=== PATIENT | female | born 1995 | race Caucasian/White ===

== ENCOUNTER 2019-12-18 19:55 | Day surgery (SDC) | payer OTHER ==
[2019-12-18 20:32] VITALS: BP 114/74; BMI 24.0
--- NOTE | 2019-12-18 20:42 | PDOC.LDHP ---
Labor and Delivery H&P Chief complaint: contractions HPI: 24 y/o at 38w3d, patient of Dr. Aragon, presents with ctx q 10 mins for the last few hours and off and on since yesterday. Reportedly 2-3 cm in clinic on . Denies VB, LOF, or decreased FM. ROS neg for HEENT, cv, pulm, gi, gu, neuro, psych, skin, musculoskeletal or constitutional symptoms other than mentioned above. OB History Details: at term Past Medical History: None Current medications: pre-eliza vitamins Previous surgical history: none Allergies/Adverse Reactions: Allergies Allergy/AdvReac Type Severity Reaction Status Date / Time No Known Allergies Allergy Verified 11/13/19 07:12 Social history: none - Physical Exam Vital signs reviewed and normal: yes General: NAD, resting Lungs: nonlabored breathing Abdomen: gravid Extremeties: no edema FHT: category 1 (120s, mod variability, + accels, no decels) [place] contractions every: intermittent - Vaginal Exam cm dilated: 2 Effacement: 50% Station: -2 - OB Labs Blood type: O RH: positive Antibody Screen: negative HIV: negative RPR: negative HEPSAg: negative 1 hour GCT: negative GBS: negative Rubella: immune - Assessment 24 y/o at 38w3d with no e/o active labor. status reassuring with reactive NST. - Plan -: D/c home with precautions. Advised to keep all appointments.
[2019-12-18 20:57] VITALS: TEMP 97.9
== END 2019-12-18 22:25 | disposition home or self-care (01) ==
LOC: L&D/OP 19:55
PROVIDERS: ATTEND Obstetrics & Gynecology
DX: O47.1 False labor at or after 37 completed weeks of gestation (principal); Z3A.38 38 weeks gestation of pregnancy

== ENCOUNTER 2019-12-23 06:11 | Inpatient (IN) | payer OTHER ==
[2019-12-23 07:00] VITALS: BMI 25.6
[2019-12-23] MEDS ORDERED: Ibuprofen 800 MG TAB PO PRN (07:04)
[2019-12-23] MEDS ORDERED: Misoprostol 200 MCG TAB PR PRN (07:04)
[2019-12-23] MEDS ORDERED: Methylergonovine 0.2 MG/ML VIAL IM PRN (07:04)
[2019-12-23] MEDS ORDERED: Carboprost 250 MCG/ML AMP IM PRN (07:04)
[2019-12-23] MEDS ORDERED: Diphenoxylate HCl/Atropine Tablet PO PRN ×2 (07:04)
[2019-12-23] MEDS ORDERED: HYDROcodone/Acetaminophen 5/325 mg Tablet PO PRN ×2 (07:04)
[2019-12-23] MEDS ORDERED: hydrALAZINE 20 MG/ML VIAL SLOW IVP PRN ×2 (07:04→15:20)
[2019-12-23] MEDS ORDERED: Promethazine HCl 25 MG/ML VIAL IM PRN ×2 (07:04→08:30)
[2019-12-23] MEDS ORDERED: Butorphanol Tartrate 1 MG/ML VIAL SLOW IVP PRN (07:04)
[2019-12-23] MEDS ORDERED: Ondansetron PF 4 MG/2 ML Vial IVP PRN ×2 (07:04→08:30)
[2019-12-23] MEDS ORDERED: Lidocaine 1% (PF) 30 ML VIAL SC PRN (07:04)
[2019-12-23] MEDS ORDERED: NS / Oxytocin 40 units/1000ml 1,000 ML IV PRN (07:04)
[2019-12-23] MEDS ORDERED: Acetaminophen 500 MG TAB PO PRN (07:04)
--- NOTE | 2019-12-23 07:11 | PDOC.LDHP ---
Labor and Delivery H&P Chief complaint: contractions HPI: 24 y/o at 39w1d, patient of Dr. Aragon, presents with ctx q 3-5 mins with bloody mucus. Was seen several days ago and 2cm. Denies LOF or decreased FM. ROS neg for HEENT, CV, pulm, GI, , neuro, psych, skin, musculoskeletal, or constitutional symptoms other than mentioned above. OB History Details: 1 prior term Current complications: none Past Medical History: None Current medications: pre-eliza vitamins Previous surgical history: none Allergies/Adverse Reactions: Allergies Allergy/AdvReac Type Severity Reaction Status Date / Time No Known Allergies Allergy Verified 12/23/19 06:57 Social history: none - Physical Exam Vital signs reviewed and normal: yes General: NAD Lungs: nonlabored breathing Abdomen: gravid Extremeties: no edema FHT: category 1 (110, mod variability, + accels, no decels) [place] contractions every: 3-5 mins - Vaginal Exam cm dilated: 4 Effacement: 90% Station: -2 - OB Labs Blood type: O RH: positive Antibody Screen: negative HIV: negative RPR: negative HEPSAg: negative 1 hour GCT: negative GBS: negative Rubella: immune - Assessment L&D Assessment: term patient in labor - Plan Plan: admit to L&D, labor augmentation if indicated, informed consent obtained, anesthesia consult for pain management -: Dr. Aragon out, will be managed by [facility].
[2019-12-23] MEDS ORDERED: FLU VACC QS2020-21(6MOS UP)/PF 60 MCG/0.5 ML SYRINGE IM ONE (07:15)
[2019-12-23] MEDS: Lactated Ringer's 1,000 ML IV SCH ×4 (07:30→21:41)
[2019-12-23] MEDS ORDERED: Fentanyl 4 mcg/Bup 0.1% Cadd 100 ML ONE (07:45)
[2019-12-23 07:47] LABS: Hemoglobin 12.9 g/dL (12.0-16.0); Mean Corpuscular HGB CONC 34.6 g/dL (32.0-36.0); Mean Corpuscular Hemoglobin 31.7 pg (27.0-31.0); Mean Corpuscular Volume 91.6 fL (78.0-98.0); Mean Platelet Volume 7.6 fL (7.4-10.4); Platelet Count 237 thou/uL (130-400); RBC Distribution Width 12.6 % (11.5-14.5); Red Blood Cell (RBC) Count 4.09 mill/uL (4.20-5.40); White Blood Cell (WBC) Count 14.1 thou/uL (4.8-10.8)
[2019-12-23 08:26] LABS: HBSAg Index 0.25 S/CO (0-0.99); Hep B Surf Ag Non-Reactive S/CO (NonReactive); Syphilis Antibody Nonreactive (Nonreactive); Syphilis Antibody Index 0.03 S/CO (<1.00 Non-Reactive)
[2019-12-23] MEDS ORDERED: Communication Order-Pharmacy FS SCH (08:30)
[2019-12-23] MEDS ORDERED: diphenhydrAMINE 50 MG/ML VIAL IVP PRN (08:30)
[2019-12-23] MEDS ORDERED: Acetaminophen 325 MG TAB PO PRN (08:30)
[2019-12-23] MEDS ORDERED: EPHEDRINE 25 MG/5 ML SYRINGE SLOW IVP PRN (08:30)
[2019-12-23] MEDS ORDERED: Lactated Ringer's 500 ML IV PRN (08:30)
[2019-12-23] MEDS ORDERED: Fentanyl 4 mcg/Bupivacaine 0.1% Cassette 100 ML EPIDURAL SCH (08:30)
[2019-12-23] MEDS ORDERED: Naloxone HCl 0.4 mg/ml Vial IVP PRN ×2 (08:30)
--- NOTE | 2019-12-23 08:42 | PDOC.BPN ---
- Brief Progress Note Encounter Date: 12/23/19 Encounter Time: 08:30 OBGYN Faculty Patient seen by me and Dr Chisholm at bedside and care reviewed with her. POC discussed. Await CX progress. GBS negative. Last CX was 4cm. Last delivery was 6 years ago. Was still layent phase last check, await entry to active phase (6cm)
--- NOTE | 2019-12-23 09:33 | PDOC.BPN ---
- Brief Progress Note Encounter Date: 12/23/19 Encounter Time: 09:30 Anesthesia BP issues noted with poss high gutiérrez. Anesthesia aware. BPs have decreased and bow has ephedra given. CX now 6cm spontaneously.
--- NOTE | 2019-12-23 11:11 | PDOC.LDPN ---
Labor & Delivery Progress Note - Subjective Subjective: comfortable - Objective Vital signs reviewed and normal: yes Abnormal vital signs: SBPs 70s-80s prior to ephedrine given and fluid bolus, now 110s General: NAD, resting Uterine fundus: non tender SVE: 100/-1 FHT: category 1, variability present [place] contractions every: not seen on toco Plan: continue plan of care -: 24 y/o at 39.1wk presented with contractions #SIUP @ 39.1wk, active labor - SVE /-1 - Cat 1 tracing, ctx not seen on toco - GBS negative, O+ - episode of symptomatic hypotension with epidural anesthesia to above level of nipples, epidural turned off, given ephedrine and fluid bolus. Currently resting comfortably and BP improved to 110s. Still with high epidural, thus will continue to leave off and monitor closely - SROM @ 0908 - Continue to monitor in active phase of labor PCP: Mahesh
[2019-12-23] MEDS ORDERED: Bupivacaine HCl 0.5%/Epinephrine 1:200,000/PF 30 ml Vial ONE (12:08)
[2019-12-23] MEDS ORDERED: NS w/ Oxytocin 10 units 500 ML ONE (13:08)
[2019-12-23] MEDS ORDERED: NS w/ Oxytocin 10 units 500 ML IV SCH (13:15)
[2019-12-23] MEDS ORDERED: Calcium Carbonate 500 MG ChewTAB PO PRN (14:18)
--- NOTE | 2019-12-23 15:08 | PDOC.OPDEL ---
OB Operative/Delivery Note Delivery Dr/Surgeon: Phan Assist: Mynor as Faculty (asia Cervantes student present) Pre-Delivery Diagnosis: active labor Procedure/Post Delivery Dx: spontaneous vaginal delivery Weeks gestation: 39 (1day) Anesthesia: epidural - Findings A Sex: female - 1 min: 8 - 5 min: 9 - Additional Findings/Plan Placenta delivered: spontaneous (AT 1509, YOUNG.) Estimated blood loss: 100 Compilations/Other Findings: NC X 1 reduced Baby vigorous Baby delivery at 1504 No [place] baby with some slight nasal flaring...blowby in room. Dr key called for eval. I was present and supervised Dr Chisholm during the whole process. Baby with spont cry and movement Post delivery plan: routine recovery
[2019-12-23] MEDS ORDERED: Acetaminophen/Codeine 30-300mg Tablet PO PRN (15:20)
[2019-12-23] MEDS ORDERED: Bisacodyl 10 MG SUPP PR PRN (15:20)
[2019-12-23] MEDS ORDERED: Benzocaine-Menthol 82.5 ML CAN TOP PRN (15:20)
[2019-12-23] MEDS ORDERED: Milk Of Magnesia 30 ML UDCUP PO PRN (15:20)
[2019-12-23] MEDS ORDERED: Lanolin Ointment 7 GM TUBE TOP PRN (15:20)
[2019-12-23] MEDS ORDERED: NS / Oxytocin 40 units/1000ml 1,000 ML IV SCH (15:30)
[2019-12-23 17:24] LABS: SARS-CoV-2 MS2 Positive; SARS-CoV-2 N Gene Negative; SARS-CoV-2 S Gene Negative; SARS-CoV-2 by NAA Not Detected (NotDetected); SARS-CoV-2 orf1ab Negative
[2019-12-23] MEDS: Ferrous Sulfate 325 MG TAB PO SCH (19:14)
[2019-12-23] MEDS: Ibuprofen 800 MG TAB PO SCH (20:42)
[2019-12-23] MEDS: Docusate Calcium (SURFAK) 240 MG CAP PO SCH (20:42)
[2019-12-24] MEDS: Acetaminophen/Codeine 30-300mg Tablet PO PRN ×3 (03:59→18:33)
[2019-12-24] MEDS: Ibuprofen 800 MG TAB PO SCH ×3 (05:41→21:54)
[2019-12-24] MEDS: Lactated Ringer's 1,000 ML IV SCH ×3 (05:52→23:04)
[2019-12-24 06:47] LABS: #Eosinphils 0.1 thou/uL (0.0-0.7); #Lymphocytes 1.8 thou/uL (1.20-3.40); #Monocytes 0.9 thou/uL (0.11-0.59); #Neutrophils 10.3 thou/uL (1.40-6.50); %Basophils 0.3 % (0.0-1.0); %Eosinophils 0.8 % (0.0-10.0); %Lymphocytes 13.8 % (21.0-51.0); %Monocytes 6.6 % (0.0-10.0); %Neutrophils 78.4 % (42.0-75.0); Hemoglobin 11.5 g/dL (12.0-16.0); Mean Corpuscular HGB CONC 34.7 g/dL (32.0-36.0); Mean Corpuscular Hemoglobin 32.2 pg (27.0-31.0); Mean Corpuscular Volume 92.7 fL (78.0-98.0); Mean Platelet Volume 7.9 fL (7.4-10.4); Platelet Count 211 thou/uL (130-400); RBC Distribution Width 12.7 % (11.5-14.5); Red Blood Cell (RBC) Count 3.58 mill/uL (4.20-5.40); White Blood Cell (WBC) Count 13.2 thou/uL (4.8-10.8)
--- NOTE | 2019-12-24 06:51 | PDOC.PP ---
Post Progress Note Post Day #: 1 Subjective: Doing well this morning, no concerns. Ambulating, voiding, flatus, no BM, tolerating PO without n/v. Lochia improved and less than normal period per patient. Pain well-controlled. Plan for discharge tomorrow. PO intake tolerated: yes Flatus: yes Ambulation: yes Vital Signs (12 hours) Temp Pulse Resp BP Pulse Ox 12/24/19 04:00 97.6 F 73 16 106/66 12/24/19 00:00 97.7 F 81 16 101/59 L 12/23/19 20:00 97.6 F 94 18 105/64 99 Weight Weight 63.503 kg - Physical Examination General: NAD (resting comfortably in bed) Cardiovascular: no m/r/g, RRR Respiratory: clear to auscultation bilaterally Abdominal: + bowel sounds, appropriately TTP Fundus firm & at: umbilicus Neurological: no gross focal deficits Psychiatric: A&Ox3, normal affect Result Diagrams: 12/24/19 06:28 Additional Labs: Post Labs Hep Bs Antigen Non-Reactive S/CO (NonReactive) 12/23/19 07:30 Blood Type O POSITIVE 12/23/19 08:05 - Assessment/Plan 24 y/o ->2 at 39.1wk s/p @ 1509 on 12/23/19, PPD#1 #PPD#1 s/p - No complications during delivery - QBL 153 - GBS negative, O+ - VSS, pain well-controlled. Ambulating, voiding, tolerating PO, flatus. - Hb 12.9 -> 11.5 - Continue routine care, anticipate discharge tomorrow pending mother and baby clinical course. PCP: Mahesh Dispo: Routine PP care, anticipate discharge tomorrow. OBGYN: OK for DC as multip and desires to go home. Home at 1600
[2019-12-24] MEDS ORDERED: Adacel (T-DAP) 0.5 ML SYRINGE IM ONE (09:00)
[2019-12-24] MEDS ORDERED: Measles/Mumps/Rubella 10 MCG/0.5 ML VIAL SC ONE (09:00)
[2019-12-24] MEDS ORDERED: Varicella virus, LIVE 0.5 ML VIAL SC ONE (09:00)
[2019-12-24] MEDS: Prenatal Vitamin 1 TAB PO SCH (09:52)
[2019-12-24] MEDS: Docusate Calcium (SURFAK) 240 MG CAP PO SCH ×2 (09:52→21:54)
[2019-12-24] MEDS: Ferrous Sulfate 325 MG TAB PO SCH ×2 (09:53→15:43)
[2019-12-25] MEDS: Ibuprofen 800 MG TAB PO SCH (04:47)
[2019-12-25 08:41] VITALS: BP 107/64; TEMP 97.8
[2019-12-25] MEDS: Docusate Calcium (SURFAK) 240 MG CAP PO SCH (09:02)
[2019-12-25] MEDS: Prenatal Vitamin 1 TAB PO SCH (09:03)
[2019-12-25] MEDS: Ferrous Sulfate 325 MG TAB PO SCH (09:03)
[2019-12-25] MEDS: Lactated Ringer's 1,000 ML IV SCH (10:23)
== END 2019-12-25 12:10 | disposition home or self-care (01) | DRG 807 ==
LOC: L&D/OP 06:11 → L&D 07:37 → 3SW 18:59
PROVIDERS: ADMIT Obstetrics & Gynecology; ATTEND Obstetrics & Gynecology
PROC: 10E0XZZ Delivery of Products of Conception, External Approach (ICD-10-PCS; principal; 2019-12-23)
DX: O69.81X0 Labor and delivery complicated by cord around neck, without compression, not applicable or unspecified (principal); Z37.0 Single live birth; O26.53 Maternal hypotension syndrome, third trimester; Z3A.39 39 weeks gestation of pregnancy; Z20.828 Contact with and (suspected) exposure to other viral communicable diseases
CPT/HCPCS: 36415; 51702; 85025; 85027; 86780; 86850; 86900; 86901; 87340; 87635; 99285; J2405; J2590; U0003

== ENCOUNTER 2020-08-28 23:59 | Emergency (ER) | payer OTHER | END 2020-08-29 00:40 | disposition short-term general hospital (02) | LOC: ERS 23:59 | DX: O99.891 Other specified diseases and conditions complicating pregnancy (principal); R10.30 Lower abdominal pain, unspecified; R00.0 Tachycardia, unspecified; R10.813 Right lower quadrant abdominal tenderness; R10.814 Left lower quadrant abdominal tenderness; Z3A.29 29 weeks gestation of pregnancy | CPT/HCPCS: 99284 ==